=== PATIENT | male | born 1940 | race Caucasian/White ===

== ENCOUNTER 2019-06-26 08:49 | Inpatient (IN) | payer OTHER ==
[~2019-06-26] VITALS: Ht 170.2 cm; Wt 60.3 kg
--- NOTE | 2019-06-26 08:51 | NUR ---
WILLIE Sharif, MADE AWARE
--- NOTE | 2019-06-26 08:54 | NUR ---
martin, from home, altered since yesterday morning, BS 57 on scene, orange juice given recheck BS 84, to er bed 9, hooked to monitor, changed to hosp gown, warm blanket provided, patient aoX1, awaiting md quiroz.
[2019-06-26] MEDS ORDERED: IV NS 0.9% 1,000 ML BAG IV ONE ×2 (09:00→12:30)
[2019-06-26 09:19] LABS: CALCIUM, SERUM 9.7 mg/dL (8.5-10.1); CARBON DIOXIDE 24 mmol/L (21-32); CHLORIDE 107 mmol/L (98-107); CREATININE 1.9 mg/dL (0.6-1.3); GLUCOSE 83 mg/dL (74-106); SODIUM SERUM 142 mmol/L (136-145); UREA NITROGEN, BLOOD 23 mg/dL (7-18)
[2019-06-26 09:26] LABS: CHOLESTEROL 192 mg/dL (<200); HDL CHOLESTEROL 38 mg/dL (40-60); LDL 137 mg/dL (0-99); TRIGLYCERIDES 98 mg/dL (30-150)
--- NOTE | 2019-06-26 09:33 | NUR ---
DR DOYLE IN CONVERSATION WITH LANIE CISNEROS [phone]
[2019-06-26] MEDS ORDERED: GLIP10TA11 PO (09:34)
[2019-06-26] MEDS ORDERED: SERT25TA PO (09:34)
[2019-06-26] MEDS ORDERED: OMEP40CA13 PO (09:34)
[2019-06-26] MEDS ORDERED: MONT10TA22 PO (09:34)
[2019-06-26] MEDS ORDERED: LOSA25TA3 PO (09:34)
[2019-06-26] MEDS ORDERED: ALBU18HF2 IH (09:34)
[2019-06-26] MEDS ORDERED: TEMA15CA PO (09:34)
[2019-06-26] MEDS ORDERED: ATOR40TA PO (09:34)
[2019-06-26] MEDS ORDERED: GUAI120013 PO (09:34)
[2019-06-26] MEDS ORDERED: METF-440 PO (09:34)
[2019-06-26] MEDS ORDERED: FENO160T PO (09:34)
[2019-06-26 09:40] LABS: BASOPHILS # (AUTO) 0.1 /CMM (0.0-0.2); BASOPHILS % (AUTO) 0.5 % (0.0-2.0); HEMATOCRIT 33 % (39-51); LYMPHOCYTES # (AUTO) 1.7 /CMM (0.8-4.8); LYMPHOCYTES % (AUTO) 9.6 % (20.0-44.0); MEAN CORPUSCULAR HGB CONC 33 g/dl (31.0-36.0); MEAN CORPUSCULAR VOLUME 93 fL (80-96); MONOCYTES # (AUTO) 1.2 /CMM (0.1-1.30); MONOCYTES % (AUTO) 6.9 % (2.0-12.0); NEUTROPHILS # (AUTO) 14.5 /CMM (1.8-8.9); PLATELET COUNT (AUTO) 393 /CMM (150-450); RED BLOOD CELL COUNT(AUTO) 3.58 MIL/uL (4.5-6.0); WHITE BLOOD COUNT (AUTO) 17.5 K/uL (4.3-11.0)
[2019-06-26] MEDS ORDERED: PIPERACILLIN /TAZOBACTAM 3.375 G VIAL IV ONE (10:28)
[2019-06-26] MEDS ORDERED: PIPERACILLIN /TAZOBACTAM 3.375 G in IV D5W 50 ML IV ONE (10:30)
--- NOTE | 2019-06-26 10:35 | NUR ---
RAC 18G IVP PULLED OUT BY PATIENT, NEW IV PERIPHERAL LINE ESTABLISHED AT 20G
[2019-06-26 11:57] LABS: BILIRUBIN,DIRECT 0.2 mg/dL (0.0-0.2); BILIRUBIN,TOTAL 0.7 mg/dL (0.2-1.0)
--- NOTE | 2019-06-26 12:21 | NUR ---
ROOM 309
[2019-06-26 12:33] LABS: APPEARANCE,URINE Clear (CLEAR); BILIRUBIN,URINE Negative (NEGATIVE); BLOOD, URINE Moderate Ery/uL (NEGATIVE); COLOR,URINE Yellow (YELLOW); KETONES,URINE Negative (NEGATIVE); LEUKOCYTE ESTERASE ,URINE Negative (NEGATIVE); NITRITE, URINE Negative (NEGATIVE); PH,URINE 5.5 (5.0-8.0); PROTEIN,URINE 30 mg/dl (NEGATIVE); UGLUCOSE Negative (NEGATIVE); UROBILINOGEN,URINE 0.2 EU/dL (0.2)
[2019-06-26 12:34] LABS: BACTERIA,URINE Rare /HPF (None Seen); SQUAMOUS EPITHELIAL CELL,UR None Seen /HPF (None Seen); WBC,URINE 0-2 /HPF (0-3)
--- NOTE | 2019-06-26 12:36 | NUR ---
LANIE CISNEROS () [phone]; HOME: [phone]
--- NOTE | 2019-06-26 13:23 | NUR ---
PAGED [facility].
[2019-06-26] MEDS ORDERED: VANCOMYCIN 1 GM VIAL ONE (13:28)
[2019-06-26] MEDS ORDERED: VANCOMYCIN HCL 1 GM in IV D5W 260 ML IV ONE (13:30)
--- NOTE | 2019-06-26 13:48 | NUR ---
PER [facility], WILL HAVE TO WAIT FOR 2 HOURS THE UNIT ARE TRANSFERRING PATIENTS TO [facility] 2 OVERFLOW
[2019-06-26] MEDS ORDERED: IV NS 0.9% 1,000 ML IV PRN (14:53)
[2019-06-26] MEDS ORDERED: ACETAMINOPHEN 325 MG TABLET PO PRN (15:00)
[2019-06-26] MEDS ORDERED: DEXTROSE 50%-WATER 50 ML DISP.SYRIN IV PRN (15:00)
[2019-06-26] MEDS ORDERED: HYDROCODONE/APAP 5/325MG 1 EACH TABLET PO PRN (15:00)
[2019-06-26] MEDS ORDERED: INSULIN REGULAR, HUMAN 100 UNIT/ML 3 ML VIAL SQ PRN (15:00)
[2019-06-26] MEDS ORDERED: ONDANSETRON HCL/PF 4 MG/2 ML VIAL IVP PRN (15:00)
[2019-06-26] MEDS ORDERED: Z GUARD REMEDY 2 OZ OINT TP PRN (15:00)
[2019-06-26] MEDS ORDERED: ALBUTEROL SULFATE INH 18 GM HFA.AER.AD IH PRN (15:00)
[2019-06-26] MEDS ORDERED: MAGNESIUM HYDROXIDE 30 ML UDC PO PRN (15:00)
[2019-06-26] MEDS ORDERED: MAG HYDROX/AL HYDROX/SIMETH 30 ML UDC PO PRN (15:00)
--- NOTE | 2019-06-26 15:23 | NUR ---
NURSING SUP GAVE [facility]WOOD BED 105.
--- NOTE | 2019-06-26 15:57 | NUR ---
REPORT GIVEN TO CHRISTOPHER YOUNGER OF [facility]
[2019-06-26] MEDS: BLOOD SUGAR DIAGNOSTIC 1 EACH STRIP VI SCH ×2 (17:47→21:02)
--- NOTE | 2019-06-26 18:45 | NUR ---
RN NOTES PATIENT IS BEING NON-COMPLIANT WITH CARE. HE KEEPS TRYING TO GET UP AND IS REMOVING THE TELE MONITOR. HE ALSO REACHES FOR HIS IV LINE. REORIENTATION DOES NOT HELP THE PT, MADE AWARE. RECEIVED ORDER FOR BILATERAL SOFT WRIST RESTRAINTS, WILL CONTINUE TO MONITOR.
[2019-06-26 18:58] VITALS: BP 128/71
--- NOTE | 2019-06-26 19:10 | NUR ---
RN OPENING NOTE: Received pt in bed, awake A&Ox1, confused. On isolation precautions. On room air, no respiratory distress noted. On tele monitor showing SR. Has IV on left FA #22 w/ D51/2NS running at 100cc/hr. Has bilateral wrist restraints due to pulling out IV site. Safety measures in place. Bed in lowest and locked position, side rails up x2, call light within reach. Will continue to monitor.
--- NOTE | 2019-06-26 19:19 | NUR ---
RN NOTES RECEIVED PATIENT VIA GURNEY FROM ED FOR ADMISSION. PT IS AOX1, VERBAL, CONFUSED, AND AMBULATORY. ON RA, SATING WELL, NO SOB OR RESP DISTRESS. SKIN IS INTACT. LUNGS SOUND CLEAR BILATERALLY, MD AWARE OF PT ARRIVAL
--- NOTE | 2019-06-26 19:24 | NUR ---
RN CLOSING NOTES PATIENT IS RESTING IN BED COMFORTABLY AT THIS TIME WITH BILATERAL SOFT WRIST RESTRAINTS.M DROPLET PRECAUTIONS HAVE BEEN IMPLEMENTED, AND ENFORCE FOR RULE OUT COVID NO ACUTE CHANGES OCCURRED THROUGHOUT THE SHIFT, VITAL SIGNS ARE STABLE, PT NEEDS HAVE BEEN MET, SAFETY MEASURES HAVE BEEN IMPLEMENTED, CALL LIGHT IS WITHIN REACH, BED IS IN LOWEST AND LOCKED POSITION, SIDE RAILS UP X2, PT HAS BEEN ENDORSED TO NIGHTSHIFT RN FOR KARAN.
[2019-06-26 20:00] VITALS: BP 98/53
[2019-06-27] VITALS (8 sets, daily range): BP systolic 106–160; BP diastolic 53–67
[2019-06-27] MEDS: IV D5/0.45 NACL 1,000 ML IV PRN ×2 (03:16→18:18)
[2019-06-27 06:31] LABS: BASOPHILS # (AUTO) 0.1 /CMM (0.0-0.2); BASOPHILS % (AUTO) 1.1 % (0.0-2.0); EOSINOPHILS % (AUTO) 2.8 % (0.0-6.0); HEMATOCRIT 28 % (39-51); HEMOGLOBIN 9.5 g/dL (13.5-17.5); LYMPHOCYTES # (AUTO) 2.3 /CMM (0.8-4.8); LYMPHOCYTES % (AUTO) 25.7 % (20.0-44.0); MEAN CORPUSCULAR HGB CONC 34 g/dl (31.0-36.0); MEAN CORPUSCULAR VOLUME 93 fL (80-96); MONOCYTES # (AUTO) 0.8 /CMM (0.1-1.30); MONOCYTES % (AUTO) 9.1 % (2.0-12.0); NEUTROPHILS # (AUTO) 5.4 /CMM (1.8-8.9); NEUTROPHILS % (AUTO) 61.3 % (43.0-81.0); PLATELET COUNT (AUTO) 255 /CMM (150-450); RED BLOOD CELL COUNT(AUTO) 3.02 MIL/uL (4.5-6.0); WHITE BLOOD COUNT (AUTO) 8.9 K/uL (4.3-11.0)
--- NOTE | 2019-06-27 06:49 | NUR ---
RN CLOSING NOTE: Pt resting in bed A&Ox1 confused. On isolation for r/o Covid. On room air, no respiratory distress noted. No acute changes noted during shift. On tele monitor showing SR. Has IV site on left FA #22 w/ D5 1/2NS running at 100cc/hr. Line flushed and patent. Dressing c/d/i. All meds administered as ordered. Kept clean and dry. Safety measures in place. Bed in lowest and locked position, side rails up x2, call light within reach. Will endorse to AM nurse for KARAN.
[2019-06-27 06:51] LABS: CALCIUM, SERUM 8.4 mg/dL (8.5-10.1); CARBON DIOXIDE 23 mmol/L (21-32); CHLORIDE 108 mmol/L (98-107); CREATININE 1.4 mg/dL (0.6-1.3); GLUCOSE 124 mg/dL (74-106); MAGNESIUM 1.3 mg/dL (1.8-2.4); PHOSPHORUS 2.4 mg/dL (2.5-4.9); POTASSIUM 3.5 mmol/L (3.5-5.1); SODIUM SERUM 140 mmol/L (136-145); UREA NITROGEN, BLOOD 18 mg/dL (7-18)
--- NOTE | 2019-06-27 07:10 | NUR ---
RN OPENING NOTES RECEIVED PATIENT IN BED ASLEEP, AROUSES EASILY.. A/OX, CONFUSED. MAINTAINED ISOLATION PRECAUTION R/O COVID. ON ROOM AIR, NO SOB, RESPIRATIONS EVEN AND UNLABORED. NOT IN ANY FORM OF DISTRESS. DENIED PAIN OR DISCOMFORT AT THIS TIME. IV ACCESS INTACT AND PATENT. OFF RESTRAINTS, PATIENT CALM AND ASLEEP. KEPT PATIENT SAFE AND COMFORTABLE. BED IN LOW/LOCKED POSITION, SIDERAILS UP, BED ALARM ON. CALL LIGHT IN REACH. WILL CONT TO MONITOR ACCORDINGLY.
[2019-06-27] MEDS: PANTOPRAZOLE 40 MG TABLET.DR PO SCH (07:30)
[2019-06-27] MEDS: ENOXAPARIN SODIUM 40 MG/0.4 ML DISP.SYRIN SQ SCH (07:30)
[2019-06-27] MEDS: BLOOD SUGAR DIAGNOSTIC 1 EACH STRIP VI SCH ×4 (09:00→21:43)
[2019-06-27] MEDS: SERTRALINE HCL 25 MG TABLET PO SCH (09:00)
[2019-06-27] MEDS: ASPIRIN 81 MG TAB.CHEW PO SCH (09:00)
[2019-06-27] MEDS: MONTELUKAST SODIUM (10MG) 10 MG TABLET PO SCH (09:00)
[2019-06-27] MEDS: ATORVASTATIN 40 MG TABLET PO SCH (09:00)
--- NOTE | 2019-06-27 09:00 | NUR ---
rn notes patient in stable condition. endorsed to CARISA GERBER
[2019-06-27] MEDS: Magnesium 1GM/D5W 100ML PREMIX 100 ML IV SCH ×5 (10:00→14:06)
--- NOTE | 2019-06-27 11:24 | NUR ---
machine rug cleaner Notes Received patient from Maxwell YOUNGER at 0947, no medication administration or charting of assessment completed. RN left due to medical illness. Patient is currently in stable condition SR on the monitor. and in Stable condition. Patient handed off to Brianna YOUNGER for continuation of care.
[2019-06-27] MEDS: *INSULIN REGULAR(HUMULIN R)HUM 100 UNIT/ML VIAL SQ PRN ×2 (14:31→21:45)
[2019-06-27] MEDS ORDERED: K PHOS NEUTRAL 250 MG TABLET PO ONE (16:00)
--- NOTE | 2019-06-27 17:57 | NUR ---
FILLER SHREDDER HELPER CLOSING NOTE PT AWAKE IN BED, ALERT AND ORIENTED X 3, WITH EPISODES OF CONFUSION, ON ROOM AIR, SATURATING WELL, RESPIRATIONS EVEN AND UNLABORED, NO SIGNS OF RESPIRATORY DISTRESS NOTED. SINUS RHYTHM ON TELE MONITOR. IV SITE ON LEFT FOREARM G22 INTACT, PATENT, INFUSING D5 1/2 NS AT 100CC/HR, NO SIGNS OF INFILTRATION NOTED. BED IN LOW POSITION, LOCKED, CALL LIGHT WITHIN REACH. PROVIDED SAFETY AND COMFORT TO PT THROUGHOUT SHIFT, ALL DUE MEDS GIVEN. WILL ENDORSE TO NOC SHIFT NURSE.
--- NOTE | 2019-06-27 18:35 | NUR ---
ENDORSED TO [facility] SHIFT NURSE TO OBTAIN A UA AND SEND TO LAB.
[2019-06-27 20:42] LABS: CREATININE, URINE 50.1 MG/DL (30.0-125.0); URINE TOTAL PROTEIN 15.7 mg/dL (0-11.9)
[2019-06-27 21:18] LABS: APPEARANCE,URINE CLEAR (CLEAR); BILIRUBIN,URINE NEGATIVE (NEGATIVE); BLOOD, URINE TRACE Ery/uL (NEGATIVE); COLOR,URINE YELLOW (YELLOW); KETONES,URINE NEGATIVE (NEGATIVE); LEUKOCYTE ESTERASE ,URINE NEGATIVE (NEGATIVE); NITRITE, URINE NEGATIVE (NEGATIVE); PH,URINE 5.5 (5.0-8.0); PROTEIN,URINE NEGATIVE (NEGATIVE); UGLUCOSE 100 MG/DL mg/dL (NEGATIVE); UROBILINOGEN,URINE 0.2 EU/dL (0.2)
[2019-06-27 21:35] LABS: BACTERIA,URINE None seen /HPF (None Seen); SQUAMOUS EPITHELIAL CELL,UR 0-2 /HPF (None Seen); WBC,URINE 0-2 /HPF (0-3)
[2019-06-27 21:42] LABS: EOSINOPHIL,URINE None Seen
[2019-06-28] VITALS: BP 118/72
[2019-06-28 04:00] VITALS: BP 112/75
[2019-06-28 06:28] LABS: BASOPHILS # (AUTO) 0.1 /CMM (0.0-0.2); BASOPHILS % (AUTO) 1.3 % (0.0-2.0); EOSINOPHILS % (AUTO) 6.3 % (0.0-6.0); HEMATOCRIT 30 % (39-51); HEMOGLOBIN 9.9 g/dL (13.5-17.5); LYMPHOCYTES # (AUTO) 2.3 /CMM (0.8-4.8); LYMPHOCYTES % (AUTO) 26.4 % (20.0-44.0); MEAN CORPUSCULAR HGB CONC 34 g/dl (31.0-36.0); MEAN CORPUSCULAR VOLUME 93 fL (80-96); MONOCYTES # (AUTO) 0.7 /CMM (0.1-1.30); PLATELET COUNT (AUTO) 301 /CMM (150-450); RED BLOOD CELL COUNT(AUTO) 3.18 MIL/uL (4.5-6.0); WHITE BLOOD COUNT (AUTO) 8.6 K/uL (4.3-11.0)
[2019-06-28 07:07] LABS: ALANINE AMINOTRANSFERASE 52 U/L (12-78); ALKALINE PHOSPHATASE 30 U/L (46-116); ASPARTATE AMINOTRANSFERASE 50 U/L (15-37); BILIRUBIN,TOTAL 0.4 mg/dL (0.2-1.0); CALCIUM, SERUM 8.5 mg/dL (8.5-10.1); CARBON DIOXIDE 27 mmol/L (21-32); CHLORIDE 107 mmol/L (98-107); CREATININE 1.5 mg/dL (0.6-1.3); GLUCOSE 100 mg/dL (74-106); MAGNESIUM 2.5 mg/dL (1.8-2.4); PHOSPHORUS 3.2 mg/dL (2.5-4.9); POTASSIUM 3.5 mmol/L (3.5-5.1); SODIUM SERUM 142 mmol/L (136-145); TOTAL PROTEIN, SERUM 6.3 g/dL (6.4-8.2); UREA NITROGEN, BLOOD 20 mg/dL (7-18)
--- NOTE | 2019-06-28 07:30 | NUR ---
MS/RN Opening Received patient AO X 2-3, able to refused all stimuli. Denies pain or any discomfort. Skin is warm to touch, kept clean/dry. Respiratory even and unlabored with room air. Keep remain lower position of the bed with locked wheel for safety. Will continue to monitor.
[2019-06-28 07:31] LABS: CREATINE KINASE, TOTAL 350 U/L (39-308)
[2019-06-28] MEDS: PANTOPRAZOLE 40 MG TABLET.DR PO SCH (08:47)
[2019-06-28] MEDS: MONTELUKAST SODIUM (10MG) 10 MG TABLET PO SCH (08:47)
[2019-06-28] MEDS: ENOXAPARIN SODIUM 40 MG/0.4 ML DISP.SYRIN SQ SCH (08:48)
[2019-06-28] MEDS: ATORVASTATIN 40 MG TABLET PO SCH (08:49)
[2019-06-28] MEDS: SERTRALINE HCL 25 MG TABLET PO SCH (08:49)
[2019-06-28] MEDS: ASPIRIN 81 MG TAB.CHEW PO SCH (08:49)
[2019-06-28] MEDS: BLOOD SUGAR DIAGNOSTIC 1 EACH STRIP VI SCH ×2 (08:50→12:39)
[2019-06-28 10:00] VITALS: BP 112/72
[2019-06-28 12:00] VITALS: BP 129/71
--- NOTE | 2019-06-28 16:00 | NUR ---
rn notes received report from carlos irby for continuity of care. patient a/ox3. able to communicate well. not on any form of distress. no complaints of pain. informed patient that we are waiting for case management to set up transport for discharge.
--- NOTE | 2019-06-28 16:55 | NUR ---
rn notes discharge patient. all question addressed appropriately. medication and discharge instruction given to the patient. given instruction on the importance of setting appointment with the primary care physician. belonging (clothes) worn by the patient on discharge. iv access removed. id band removed. patient walked out of the unit for safety to the taxi.
[2019-07-01 08:09] LABS: *SPE ALBUMIN 2.9 g/dL (2.9-4.4); *SPE ALPHA-1-GLOBULIN 0.2 g/dL (0.0-0.4); *SPE ALPHA-2-GLOBULIN 0.6 g/dL (0.4-1.0); *SPE BETA GLOBULIN 0.9 g/dL (0.7-1.3); *SPE GLOBULIN, TOTAL 2.8 g/dL (2.2-3.9); *SPE M-SPIKE 0.9 g/dL (Not Observed); *SPEGAMMA GLOBULIN 1.1 g/dL (0.4-1.8)
== END 2019-06-28 16:55 | disposition home or self-care (01) | DRG 637 ==
LOC: ER 08:52 → TELE 13:25 → TELE1 15:27
PROVIDERS: ADMIT Internal Medicine; ATTEND Internal Medicine
DX: E11.649 Type 2 diabetes mellitus with hypoglycemia without coma (principal); I21.A1 Myocardial infarction type 2; G93.41 Metabolic encephalopathy; E87.2 Acidosis; N17.0 Acute kidney failure with tubular necrosis; E83.39 Other disorders of phosphorus metabolism; K21.9 Gastro-esophageal reflux disease without esophagitis; J44.9 Chronic obstructive pulmonary disease, unspecified; E83.42 Hypomagnesemia; I12.9 Hypertensive chronic kidney disease with stage 1 through stage 4 chronic kidney disease, or unspecified chronic kidney disease; E11.22 Type 2 diabetes mellitus with diabetic chronic kidney disease; N18.9 Chronic kidney disease, unspecified; Z79.84 Long term (current) use of oral hypoglycemic drugs; I10 Essential (primary) hypertension; F41.9 Anxiety disorder, unspecified; R40.2413 Glasgow coma scale score 13-15, at hospital admission
CPT/HCPCS: 36415; 70450-TC; 71045-TC; 80048-TC; 80053-TC; 80061-TC; 81000-TC; 82247-TC; 82248-TC; 82550-TC; 82570-TC; 82962-TC; 83605-TC; 83735-TC; 83970; 84100-TC; 84155; 84155-TC; 84165; 84300-TC; 84484-TC; 85025-TC; 85730-TC; 87040-TC; 87081-TC; 87086-TC; 93307-TC; G0378; J1650; J1815; J2543; J3370; J3475; J3490; J7030; J7040; J7060